=== PATIENT | female | born 1990 | race Caucasian/White ===

== ENCOUNTER 2022-07-23 11:02 | Outpatient (REF) | payer OTHER, SELFPAY ==
[2022-07-23 12:43] LABS: SARS PCR* Negative SARS-CoV-2 (Negative)
== END 2022-07-23 11:03 | disposition home or self-care (01) ==
LOC: NPINS 11:02
PROVIDERS: PCP Family Medicine; Visit Provider Internal Medicine
DX: Z20.822 Contact with and (suspected) exposure to COVID-19 (principal)
CPT/HCPCS: 87426; 87635

== ENCOUNTER 2022-07-24 23:00 | Outpatient (CLI) | payer OTHER, SELFPAY | END 2022-07-24 23:01 | disposition home or self-care (01) | LOC: SLEEP 23:03 | PROVIDERS: PCP Family Medicine; Visit Provider Internal Medicine | DX: G47.33 Obstructive sleep apnea (adult) (pediatric) (principal) | CPT/HCPCS: 95810 ==

== ENCOUNTER 2024-11-03 13:24 | Outpatient (CLI) | payer OTHER, SELFPAY | END 2024-11-03 13:25 | disposition home or self-care (01) | LOC: NFLDREF 11-05 00:58 | PROVIDERS: PCP Family Medicine; Referring Provider Family Medicine; Visit Provider Nurse Practitioner Family | DX: R30.0 Dysuria (principal) | CPT/HCPCS: 87086 ==